=== PATIENT | male | born 1980 | race African-American/Black ===

== ENCOUNTER 2016-10-06 20:45 | Emergency (ER) | payer OTHER ==
[~2016-10-06] VITALS: Ht 177.8 cm; Wt 90.7 kg
[2016-10-06 21:07] VITALS: BP 144/79
--- NOTE | 2016-10-06 21:42 | NUR ---
PT TAKEN TO OF
[2016-10-06] MEDS ORDERED: METHOCARBAMOL 500 MG TAB PO ONE (22:00)
[2016-10-06] MEDS ORDERED: KETOROLAC 30 MG/ML VIAL IM ONE (22:00)
--- NOTE | 2016-10-06 22:06 | NUR ---
Dr. Maguire evaluating patient
[2016-10-06 23:00] VITALS: BP 137/71
--- NOTE | 2016-10-06 23:00 | NUR ---
Patient discharged with v/s stable. Written and verbal after care instructions given and explained. Patient alert, oriented and verbalized understanding of instructions. Ambulatory with steady gait. All questions addressed prior to discharge. ID band removed. Patient advised to follow up with PMD. Rx of Motrin and Robaxin given. Patient educated on indication of medication including possible reaction and side effects. Opportunity to ask questions provided and answered.
== END 2016-10-06 23:00 | disposition home or self-care (01) ==
LOC: MED 20:45
DX: S39.012A Strain of muscle, fascia and tendon of lower back, initial encounter (principal); V89.2XXA Person injured in unspecified motor-vehicle accident, traffic, initial encounter; Y93.89 Activity, other specified; Y92.89 Other specified places as the place of occurrence of the external cause; Y99.8 Other external cause status
CPT/HCPCS: 96372; 99283; J1885